=== PATIENT | female | born 1960 | race Caucasian/White ===

== ENCOUNTER 2019-10-27 16:59 | Outpatient (REF) | payer OTHER, SELFPAY | END 2019-10-27 17:19 | LOC: NCHCN 16:59 | PROVIDERS: PCP Nurse Practitioner Community Health; Visit Provider Nurse Practitioner Community Health | DX: R30.9 Painful micturition, unspecified (principal) | CPT/HCPCS: 87086 ==

== ENCOUNTER 2019-12-18 20:24 | Outpatient (REF) | payer OTHER, SELFPAY ==
[2019-12-18 20:45] LABS: Bilirubin Negative (Negative); Blood Small (Negative); Clarity Clear (Clear); Glucose Negative (Negative); Ketones 15 mg/dL (Negative); Leukocyte Esterase Trace (Negative); Nitrite Negative (Negative); Specific Gravity >= 1.030 (1.005-1.025); Urobilinogen 0.2 EU/dL (Up TO 0.2)
[2019-12-18 20:56] LABS: Bacteria Few HPF (Negative); C & S Indicated? Yes; Casts Negative LPF (Negative); Crystals Negative HPF (Negative); Epithelial Cells Few HPF (Negative); Mucus Negative (Negative); RBC 0-2 HPF (0-2)
== END 2019-12-18 20:44 ==
LOC: NCHCN 20:24
PROVIDERS: PCP Nurse Practitioner Community Health; Visit Provider Nurse Practitioner Family
DX: R39.9 Unspecified symptoms and signs involving the genitourinary system (principal)
CPT/HCPCS: 81003; 81015; 87086

== ENCOUNTER 2019-12-19 21:36 | Outpatient (REF) | payer OTHER, SELFPAY ==
[2019-12-20 13:48] LABS: Campylobacter PCR Negative (Negative); Salmonella PCR Negative (Negative); Shiga Toxin PCR Negative (Negative); Shigella/Enteroinvasive Ecoli Negative (Negative)
[2019-12-23 13:34] LABS: Helicobacter pylori Ag, Feces Negative (Negative)
== END 2019-12-19 21:56 ==
LOC: NCHCN 21:36
PROVIDERS: PCP Nurse Practitioner Community Health; Visit Provider Nurse Practitioner Family
DX: R19.7 Diarrhea, unspecified (principal)
CPT/HCPCS: 87329; 87338; 87505; 87177; 87324

== ENCOUNTER 2020-03-22 15:51 | Outpatient (REF) | payer OTHER, SELFPAY ==
[2020-03-27 02:20] LABS: Patient Race White; SARS-CoV-2 RNA Undetected (Undetected); SARS-CoV-2 Specimen Source Nasal
== END 2020-03-22 16:11 ==
LOC: NCHCN 15:51
PROVIDERS: PCP Nurse Practitioner Community Health; Visit Provider Family Medicine
DX: Z20.828 Contact with and (suspected) exposure to other viral communicable diseases (principal)
CPT/HCPCS: U0003

== ENCOUNTER 2020-08-25 17:57 | Outpatient (REF) | payer OTHER, SELFPAY | END 2020-08-25 17:58 | disposition home or self-care (01) | LOC: NCHCN 17:57 | PROVIDERS: PCP Nurse Practitioner Community Health; Visit Provider Nurse Practitioner Community Health | DX: R35.0 Frequency of micturition (principal) | CPT/HCPCS: 87077; 87086; 87186 ==

== ENCOUNTER 2020-11-18 18:26 | Outpatient (REF) | payer OTHER, SELFPAY ==
[2020-11-18 21:07] LABS: Anion Gap 16.3 mmol/L (3-11); BUN 29 mg/dL (7-18); CO2 21.7 mmol/L (21.0-32.0); CREATININE 0.8 mg/dL (0.55-1.02); Calcium 9.5 mg/dL (8.5-10.1); Chloride 105 mmol/L (98-107); Glucose 87 mg/dL (74-106); Potassium 4.7 mmol/L (3.5-5.1); Sodium 143 mmol/L (136-145)
== END 2020-11-18 18:27 | disposition home or self-care (01) ==
LOC: NCHCN 18:26
PROVIDERS: PCP Nurse Practitioner Community Health; Visit Provider Registered Nurse
DX: R00.2 Palpitations (principal)
CPT/HCPCS: 80048

== ENCOUNTER 2020-12-31 07:42 | Outpatient (REF) | payer OTHER, SELFPAY ==
[2021-01-02 12:50] LABS: COVID-19 RT-PCR UVMMC Result Negative (Negative)
== END 2020-12-31 07:43 | disposition home or self-care (01) ==
LOC: NCHCN 07:42
PROVIDERS: PCP Nurse Practitioner Community Health; Visit Provider Family Medicine
DX: Z20.822 Contact with and (suspected) exposure to COVID-19 (principal); J34.89 Other specified disorders of nose and nasal sinuses
CPT/HCPCS: U0003

== ENCOUNTER 2021-02-24 14:49 | Outpatient (REF) | payer MEDICAID, SELFPAY ==
[2021-02-24 15:36] LABS: Vitamin D 25 Total 22.1 ng/mL (30-100)
== END 2021-02-24 14:50 | disposition home or self-care (01) ==
LOC: NCHCN 14:49
PROVIDERS: PCP Nurse Practitioner Community Health; Visit Provider Family Medicine
DX: M81.0 Age-related osteoporosis without current pathological fracture (principal)
CPT/HCPCS: 82306

== ENCOUNTER 2021-09-12 14:02 | Outpatient (REF) | payer MEDICAID, SELFPAY | END 2021-09-12 14:03 | disposition home or self-care (01) | LOC: NCHCN 14:02 | PROVIDERS: PCP Nurse Practitioner Community Health; Visit Provider Internal Medicine | DX: R30.0 Dysuria (principal) | CPT/HCPCS: 87086 ==

== ENCOUNTER 2021-09-28 09:00 | Outpatient (REF) | payer MEDICAID, SELFPAY ==
[2021-09-28 22:42] LABS: Thyroperoxidase Antibody 36 U/mL (<=60)
== END 2021-09-28 09:01 | disposition home or self-care (01) ==
LOC: LBN 09:00
PROVIDERS: PCP Nurse Practitioner Community Health; Visit Provider Internal Medicine Endocrinology, Diabetes & Metabolism
DX: E04.2 Nontoxic multinodular goiter (principal)
CPT/HCPCS: 86376

== ENCOUNTER 2021-12-12 16:38 | Outpatient (REF) | payer MEDICAID, SELFPAY ==
[2021-12-12 15:46] LABS: HCT 37.5 % (36.0-46.0); MCH 33.5 pg (27.0-33.0); MCV 105 fL (80-95); MPV 12.6 fL (8.0-11.0); Platelet Count 180 10^3/uL (130-400); RBC 3.58 10^6/uL (3.93-5.22); RDW 12.1 % (11.7-14.6); WBC 6.08 10^3/uL (4.4-10.8)
[2021-12-12 16:15] LABS: Anion Gap 10.8 mmol/L (3-11); BUN 20 mg/dL (7-18); CO2 23.2 mmol/L (21.0-32.0); CREATININE 0.6 mg/dL (0.55-1.02); Calcium 9.2 mg/dL (8.5-10.1); Calculated LDL 65 mg/dL (<100); Chloride 109 mmol/L (98-107); Cholesterol 152 mg/dL (<200); Glucose 99 mg/dL (74-106); HDL Cholesterol 74 mg/dL (40-60); Potassium 4.1 mmol/L (3.5-5.1); Sodium 143 mmol/L (136-145); Triglyceride 66 mg/dL (<150)
[2021-12-13 11:56] LABS: Vitamin B12 162 pg/mL (193-986)
== END 2021-12-12 16:39 | disposition home or self-care (01) ==
LOC: NCHCN 16:38
PROVIDERS: PCP Nurse Practitioner Community Health; Visit Provider Family Medicine
DX: D72.819 Decreased white blood cell count, unspecified (principal); I10 Essential (primary) hypertension; I25.2 Old myocardial infarction; F10.10 Alcohol abuse, uncomplicated
CPT/HCPCS: 80048; 80061; 85027; 82607

== ENCOUNTER 2022-01-02 16:20 | Outpatient (REF) | payer MEDICAID, SELFPAY | END 2022-01-02 16:21 | disposition home or self-care (01) | LOC: NCHCN 16:20 | PROVIDERS: PCP Nurse Practitioner Community Health; Visit Provider Internal Medicine | DX: R39.9 Unspecified symptoms and signs involving the genitourinary system (principal) | CPT/HCPCS: 87086 ==

== ENCOUNTER 2022-02-24 15:52 | Outpatient (REF) | payer MEDICAID, SELFPAY ==
[2022-02-24 17:28] LABS: Vitamin B12 707 pg/mL (193-986)
== END 2022-02-24 15:53 | disposition home or self-care (01) ==
LOC: NCHCN 15:52
PROVIDERS: PCP Nurse Practitioner Community Health; Visit Provider Family Medicine
DX: E53.8 Deficiency of other specified B group vitamins (principal)
CPT/HCPCS: 82607

== ENCOUNTER 2022-10-12 12:36 | Outpatient (REF) | payer MEDICAID, SELFPAY ==
[2022-10-12 21:03] LABS: HCT 43.1 % (36.0-46.0); HGB 14.6 g/dL (11.2-15.7); MCH 33.3 pg (27.0-33.0); MCHC 33.9 % (32.0-36.0); MCV 98 fL (80-95); MPV 12.4 fL (8.0-11.0); Platelet Count 192 10^3/uL (130-400); RBC 4.38 10^6/uL (3.93-5.22); RDW 11.7 % (11.7-14.6); RDW-SD 42.5 fL; WBC 5.52 10^3/uL (4.4-10.8)
[2022-10-12 21:09] LABS: ALT 60 U/L (14-59); AST 48 U/L (15-37); Albumin 4.2 g/dL (3.4-5.0); Alkaline Phosphatase 54 U/L (46-116); Anion Gap 10.9 mmol/L (3-11); BUN 21 mg/dL (7-18); Bilirubin, Total 0.9 mg/dL (0.2-1.0); CO2 24.1 mmol/L (21.0-32.0); CREATININE 0.7 mg/dL (0.55-1.02); Calcium 9.3 mg/dL (8.5-10.1); Chloride 105 mmol/L (98-107); Estimated GFR 98.34 (mL/min/1.73m2); Glucose 99 mg/dL (74-106); Potassium 3.6 mmol/L (3.5-5.1); Sodium 140 mmol/L (136-145); TSH 1.56 uIU/mL (0.36-3.74)
== END 2022-10-12 12:37 | disposition home or self-care (01) ==
LOC: NCHCN 12:36
PROVIDERS: PCP Nurse Practitioner Community Health; Visit Provider Registered Nurse
DX: R06.02 Shortness of breath (principal); R07.89 Other chest pain
CPT/HCPCS: 80053; 85027; 84443

== ENCOUNTER 2022-10-27 09:28 | Outpatient (REF) | payer MEDICAID, SELFPAY ==
[2022-10-27 15:20] LABS: Vitamin D 25 Total 25.8 ng/mL (30-100)
[2022-10-27 16:30] LABS: Vitamin B12 > 2000 pg/mL (193-986)
== END 2022-10-27 09:29 | disposition home or self-care (01) ==
LOC: NCHCN 09:28
PROVIDERS: PCP Nurse Practitioner Community Health; Visit Provider Registered Nurse
DX: E53.8 Deficiency of other specified B group vitamins (principal); M81.0 Age-related osteoporosis without current pathological fracture
CPT/HCPCS: 82306; 82607

== ENCOUNTER 2023-01-04 16:25 | Outpatient (REF) | payer MEDICAID, SELFPAY ==
[2023-01-04 20:53] LABS: ALT 39 U/L (14-59); AST 24 U/L (15-37); Albumin 3.9 g/dL (3.4-5.0); Alkaline Phosphatase 56 U/L (46-116); Bilirubin, Direct 0.1 mg/dL (0.0-0.2); Bilirubin, Total 0.4 mg/dL (0.2-1.0); Total Protein 7.2 g/dL (6.4-8.2)
== END 2023-01-04 16:26 | disposition home or self-care (01) ==
LOC: NCHCN 16:25
PROVIDERS: PCP Nurse Practitioner Community Health; Visit Provider Family Medicine
DX: K70.0 Alcoholic fatty liver (principal); M81.0 Age-related osteoporosis without current pathological fracture
CPT/HCPCS: 80076; 82306

== ENCOUNTER 2024-06-16 10:31 | Outpatient (REF) | payer MEDICAID, SELFPAY ==
[2024-06-16 14:33] LABS: HCT 44.8 % (36.0-46.0); HGB 14.7 g/dL (11.2-15.7); MCH 32.2 pg (27.0-33.0); MCHC 32.8 % (32.0-36.0); MCV 98 fL (80-95); MPV 12.9 fL (8.0-11.0); Platelet Count 169 10^3/uL (130-400); RBC 4.56 10^6/uL (3.93-5.22); RDW 11.9 % (11.7-14.6); RDW-SD 43.4 fL; WBC 6.12 10^3/uL (4.4-10.8)
[2024-06-16 15:08] LABS: Anion Gap 10.2 mmol/L (3-11); BUN 19 mg/dL (7-18); CO2 22.8 mmol/L (21.0-32.0); CREATININE 0.6 mg/dL (0.55-1.02); Calcium 9.9 mg/dL (8.5-10.1); Calculated LDL 75 mg/dL (<100); Chloride 108 mmol/L (98-107); Cholesterol 158 mg/dL (<200); Glucose 95 mg/dL (74-106); HDL Cholesterol 68 mg/dL (40-60); Potassium 3.8 mmol/L (3.5-5.1); Sodium 141 mmol/L (136-145); Triglyceride 78 mg/dL (<150); Vitamin B12 525 pg/mL (193-986); Vitamin D 25 Total 25.6 ng/mL (30-100)
== END 2024-06-16 10:32 | disposition home or self-care (01) ==
LOC: NCHCN 10:31
PROVIDERS: PCP Nurse Practitioner Community Health; Visit Provider Family Medicine
DX: I25.10 Atherosclerotic heart disease of native coronary artery without angina pectoris (principal); E55.9 Vitamin D deficiency, unspecified; E53.9 Vitamin B deficiency, unspecified
CPT/HCPCS: 80048; 80061; 82306; 85027; 82607